=== PATIENT | female | born 1980 | race Caucasian/White ===

== ENCOUNTER → 2019-02-13 | Outpatient (CLI) | payer OTHER, SELFPAY ==
[2015-10-25 22:07] VITALS: BMI 39.8
[2019-02-13 16:47] LABS: Thyroid Stim Hormone (TSH) 1.12 uIU/mL (0.358-3.74)
[2019-02-15 11:09] LABS: Cancer Antigen 125 11.8 U/mL (0.0-38.1)
[2019-02-17 13:32] LABS: HPV Reflexed? NOT INDICATED
== END | disposition home or self-care (01) ==
LOC: WOBLAB 14:12
PROVIDERS: Visit Provider Obstetrics & Gynecology
DX: N92.6 Irregular menstruation, unspecified (principal); R63.5 Abnormal weight gain; Z12.4 Encounter for screening for malignant neoplasm of cervix
CPT/HCPCS: 36415; 84443; 86304; 88175; G0145

== ENCOUNTER → 2019-08-18 | Outpatient (CLI) | payer OTHER, SELFPAY ==
[2019-08-18 20:17] LABS: Chlamydia Trachomatis by PCR Negative (Negative); Neisserai gonorrhoeae by PCR Negative (Negative); Probe Check PASS; Sample Adequacy Control PASS; Specimen Processing Control PASS
== END | disposition home or self-care (01) ==
LOC: LABSPEC 16:47
PROVIDERS: Visit Provider Advanced Practice Midwife
DX: Z11.3 Encounter for screening for infections with a predominantly sexual mode of transmission (principal)
CPT/HCPCS: 87491; 87591

== ENCOUNTER → 2019-08-25 | Outpatient (CLI) | payer OTHER, SELFPAY ==
[2015-10-25 22:07] VITALS: BMI 39.8
[2019-08-25 16:52] LABS: Absolute Lymphocyte Count 2.15 X10^3/uL (0.83-4.51); Absolute Neutrophil Count 9.7 X10^3/uL (2.0-7.7); Basophil# 0.05 X10^3/uL; Basophil% 0.4 % (0-1); Eosinophil# 0.07 X10^3/uL; Eosinophils% 0.6 % (0-5); Hematocrit 35.9 % (37-47); Hemoglobin 11.8 g/dL (12.0-15.0); Lymphocyte # 2.15 X10^3/ul (4.0); Lymphocyte % 16.9 % (19-41); Mean Corp Hgb Conc 32.9 g/dL (32-36); Mean Corpuscular Hgb 28.4 pg (27.0-32.0); Mean Corpuscular Volume 86.3 fL (81-99); Mean Platelet Vol. 10.7 fl (6.2-12.0); Monocyte% 5.5 % (0-10); NRBC Flagged by Analyzer 0 % (0-5); Neutrophil # 9.69 X10^3/uL (2.7-7.7); Neutrophil % 76.4 % (47-70); Platelet Count 310 K/mm3 (150-450); RBC Distribution Width CV 14.2 % (11.6-14.6); RBC Distribution Width SD 44.3 fl (35.1-43.9); Red Blood Count 4.16 M/mm3 (4.2-5.4); White Blood Count 12.7 K/mm3 (4.4-11.0)
[2019-08-25 17:10] LABS: Color, Urine Yellow (Yellow); Glucose, Dipstick Normal (Normal); Ketone-Dipstick 5 mg/dl (Negative); Leukocyte Esterase-Dipstick 25 /ul (Negative); Nitrite-Dipstick Negative (Negative); Occult Blood-Urine Negative /ul (Negative); Protein-Dipstick 15 mg/dl (Negative); Specific Gravity, Urine 1.025 (1.002-1.030); Urine Bilirubin Dipstick Negative (Negative); Urine Clarity Cloudy (Clear); Urine Urobilinogen 1 mg/dl (Normal)
[2019-08-25 17:26] LABS: Thyroid Stim Hormone (TSH) 0.78 uIU/mL (0.358-3.74)
[2019-08-25 17:45] LABS: Amphetamine Urine VISTA NEGATIVE (<1000 ng/mL); Barbiturate Urine VISTA NEGATIVE (< 200 ng/mL); Benzodiazepine Urine VISTA NEGATIVE (< 200 ng/mL); Cocaine Urine VISTA NEGATIVE (< 300 ng/mL); Ecstacy Urine VISTA NEGATIVE (< 500 ng/mL); Methadone Urine VISTA NEGATIVE (< 300 ng/mL); PCP Urine VISTA NEGATIVE (< 25 ng/mL); THC Urine VISTA NEGATIVE (< 50 ng/mL); Vista UDS pH Range 5
[2019-08-29 11:08] LABS: HIV - WCH Preliminary Reactive (Nonreactive); Hepatitis B Surface Antigen Non-Reactive (Nonreactive); Hepatitis C Antibody Non-Reactive (Nonreactive); Rubella IgG 95.3 IU/mL
[2019-08-31 02:20] LABS: Prenatal RPR NONREACTIVE (NONREACTIVE)
== END | disposition home or self-care (01) ==
LOC: WOBLAB 15:33
PROVIDERS: Visit Provider Obstetrics & Gynecology
DX: Z34.82 Encounter for supervision of other normal pregnancy, second trimester (principal)
CPT/HCPCS: 36415; 80307; 81002; 84443; 85025; 86703; 86762; 86803; 87340

== ENCOUNTER → 2019-09-29 16:08 | Outpatient (CLI) | payer OTHER, SELFPAY ==
[2015-10-25 22:07] VITALS: BMI 39.8
[2019-09-29 17:50] LABS: Hemoglobin A1c 5.3 % (4.2-6.3)
== END ==
PROVIDERS: Visit Provider Obstetrics & Gynecology
DX: Z13.1 Encounter for screening for diabetes mellitus (principal)
CPT/HCPCS: 36415; 83036

== ENCOUNTER → 2019-12-27 14:03 | Outpatient (CLI) | payer OTHER, SELFPAY ==
[2015-10-25 22:07] VITALS: BMI 39.8
[2019-12-27 17:01] LABS: Hematocrit 32.6 % (37-47); Hemoglobin 10.5 g/dL (12.0-15.0); Mean Corp Hgb Conc 32.2 g/dL (32-36); Mean Corpuscular Hgb 28.2 pg (27.0-32.0); Mean Corpuscular Volume 87.6 fL (81-99); Platelet Count 386 K/mm3 (150-450); RBC Distribution Width CV 13.6 % (11.6-14.6); RBC Distribution Width SD 43.8 fl (35.1-43.9); Red Blood Count 3.72 M/mm3 (4.2-5.4); White Blood Count 12.2 K/mm3 (4.4-11.0)
[2019-12-27 17:02] LABS: Glucose Challenge Gest 1H 50g 136 mg/dL (70-140)
== END ==
PROVIDERS: Visit Provider Obstetrics & Gynecology
DX: Z34.83 Encounter for supervision of other normal pregnancy, third trimester (principal)
CPT/HCPCS: 36415; 82950; 85027

== ENCOUNTER → 2020-01-11 | Outpatient (CLI) | payer OTHER, SELFPAY ==
[2015-10-25 22:07] VITALS: BMI 39.8
[2020-01-11 17:10] LABS: Mean Corp Hgb Conc 32.4 g/dL (32-36); Mean Corpuscular Volume 86.5 fL (81-99); Mean Platelet Vol. 10.1 fl (6.2-12.0); Platelet Count 372 K/mm3 (150-450); RBC Distribution Width CV 14.3 % (11.6-14.6); RBC Distribution Width SD 44.9 fl (35.1-43.9); Red Blood Count 3.93 M/mm3 (4.2-5.4); White Blood Count 13.5 K/mm3 (4.4-11.0)
[2020-01-11 17:22] LABS: International Normalized Ratio 0.9; Partial Thromboplast Time 26.6 Seconds (24.1-36.2); Prothrombin Time (Protime)PT. 12.3 SECONDS (11.7-14.9)
[2020-01-11 17:27] LABS: ALB/GLOB Ratio 0.6 RATIO (0.9-2.4); AST(SGOT) 12 U/L (15-37); Alanine Aminotransfer ALT/SGPT 19 U/L (13-56); Albumin, Serum 2.8 g/dL (3.2-5.0); Alkaline Phosphatase 135 U/L (45-117); Anion Gap 8 (5-15); BUN 6 mg/dL (7-18); BUN/Creat Ratio 11.3 RATIO (10-20); Bilirubin, Direct < 0.05 mg/dL (0.00-0.30); Calcium,Total 8.9 mg/dL (8.5-10.1); Chloride 105 mmol/L (98-107); Creatinine, Serum 0.53 mg/dL (0.55-1.02); EST Glomerular Filtration Rate 134 mL/min (>60); Est Glom Filt Rate - Afr Amer 162 mL/min (>60); Globulin 4.4 g/dL (2.2-4.2); Glucose 73 mg/dL (74-106); Potassium 3.7 mmol/L (3.5-5.1); Protein, Total 7.2 g/dL (6.4-8.2); Sodium Level 135 mmol/L (136-145); Uric Acid 2.8 mg/dL (2.6-6.0)
== END | disposition home or self-care (01) ==
LOC: WOBLAB 15:55
PROVIDERS: Visit Provider Obstetrics & Gynecology
DX: R03.0 Elevated blood-pressure reading, without diagnosis of hypertension (principal)
CPT/HCPCS: 36415; 80053; 82248; 84550; 85027; 85610; 85730

== ENCOUNTER 2020-01-26 11:45 | Outpatient (CLI) | payer OTHER, SELFPAY ==
[2020-01-26] VITALS (7 sets, daily range): BP systolic 125–172; BP diastolic 67–87; PULSE 92–99; TEMP 36.6; O2SAT 96; BMI 44.6
[2020-01-26] MEDS: 0.9% Saline Lock 10 ML Syringe IV (12:00)
[2020-01-26] MEDS: Betamethasone/Betamethasone 30 MG/5 ML Vial 12 MG IM (12:37)
[2020-01-26 13:09] LABS: Hematocrit 34.9 % (37-47); Hemoglobin 11.3 g/dL (12.0-15.0); Mean Corp Hgb Conc 32.4 g/dL (32-36); Mean Corpuscular Hgb 28.3 pg (27.0-32.0); Mean Corpuscular Volume 87.3 fL (81-99); Mean Platelet Vol. 9.1 fl (6.2-12.0); Platelet Count 344 K/mm3 (150-450); RBC Distribution Width CV 14.3 % (11.6-14.6); RBC Distribution Width SD 45.5 fl (35.1-43.9); White Blood Count 12.7 K/mm3 (4.4-11.0)
[2020-01-26 13:18] LABS: Protein, Urine (Random) 19.7 mg/dL (<11.9); Protein:Creat Ratio 117 mg/g CRE (0-200)
[2020-01-26 13:24] LABS: ALB/GLOB Ratio 0.7 RATIO (0.9-2.4); AST(SGOT) 11 U/L (15-37); Alanine Aminotransfer ALT/SGPT 20 U/L (13-56); Albumin, Serum 2.8 g/dL (3.2-5.0); Alkaline Phosphatase 136 U/L (45-117); Anion Gap 7 (5-15); BUN 4 mg/dL (7-18); BUN/Creat Ratio 7.3 RATIO (10-20); Calcium,Total 9.1 mg/dL (8.5-10.1); Chloride 107 mmol/L (98-107); Creatinine, Serum 0.55 mg/dL (0.55-1.02); EST Glomerular Filtration Rate 130 mL/min (>60); Est Glom Filt Rate - Afr Amer 158 mL/min (>60); Estimated Creatinine Clearance 126.01 ml/min; Glucose 81 mg/dL (74-106); Potassium 4.2 mmol/L (3.5-5.1); Protein, Total 6.8 g/dL (6.4-8.2); Sodium Level 139 mmol/L (136-145); Uric Acid 2.9 mg/dL (2.6-6.0)
--- NOTE | 2020-01-26 15:04 | OB.TRI.NOTE ---
- Problem List (1) 33 weeks gestation of Status: Acute (2) Gestational hypertension Status: Acute Qualifiers: Trimester: third trimester Qualified Code(s): O13.3 - Gestational [-induced] hypertension without significant proteinuria, third trimester History of Present Illness Date of Service: 01/26/20 Was patient seen by the physician?: Yes Reason For Visit: R/O preeclampsia Final LILA: 03/10/20 Final LILA Source: LMP Gestational age: 33 Weeks and 5 Days History of Present Illness: 39yo @ 33 5/7wga sent from office with elevated BPs. Home BPs to 160/110 this am and office BP today 140/92, NST there reactive. Denies headache, vision changes, shortness of breath or abdominal pain. + FM, no leaking of fluid, vaginal bleeding or contractions. hx preeclampsia in prior . Allergies No Known Allergies Allergy (Verified 01/26/20 13:04) Laboratory Studies: Laboratory Tests 01/26/20 01/26/20 01/26/20 Range/Units 12:59 12:59 12:59 WBC 12.7 H (4.4-11.0) K/mm3 RBC 4.00 L (4.2-5.4) M/mm3 Hgb 11.3 L (12.0-15.0) g/dL Hct 34.9 L (37-47) % MCV 87.3 (81-99) fL MCH 28.3 (27.0-32.0) pg MCHC 32.4 (32-36) g/dL RDW Std Deviation 45.5 H (35.1-43.9) fl RDW Coeff of Mily 14.3 (11.6-14.6) % Plt Count 344 (150-450) K/mm3 MPV 9.1 (6.2-12.0) fl Sodium 139 (136-145) mmol/L Potassium 4.2 (3.5-5.1) mmol/L Chloride 107 (98-107) mmol/L Carbon Dioxide 25.0 (21.0-32.0) mmol/L Anion Gap 7 (5-15) BUN 4 L (7-18) mg/dL Creatinine 0.55 (0.55-1.02) mg/dL Estim Creat Clear Calc 126.01 ml/min Est GFR (MDRD) Af Amer 158 (>60) mL/min Est GFR (MDRD) Non-Af 130 (>60) mL/min BUN/Creatinine Ratio 7.3 L (10-20) RATIO Glucose 81 (74-106) mg/dL Uric Acid 2.9 (2.6-6.0) mg/dL Calcium 9.1 (8.5-10.1) mg/dL Total Bilirubin 0.20 (0.20-1.00) mg/dL AST 11 L (15-37) U/L ALT 20 (13-56) U/L Alkaline Phosphatase 136 H (45-117) U/L Total Protein 6.8 (6.4-8.2) g/dL Albumin 2.8 L (3.2-5.0) g/dL Globulin 4.0 (2.2-4.2) g/dL Albumin/Globulin Ratio 0.7 L (0.9-2.4) RATIO U Random Total Protein 19.7 H (<11.9) mg/dL Urine Creatinine 168.00 (NO RANGE EST.) mg/dL Protein/Creatinin Ratio 117 (0-200) mg/g CRE Physical Exam Vitals: Vital Signs Temp Pulse BP Pulse Ox 97.9 F 92 125/67 H 96 01/26/20 11:59 01/26/20 13:44 01/26/20 13:44 01/26/20 11:59 General: Alert, Oriented x3, Cooperative, No apparent distress HEENT: Atraumatic, Normocephalic Lungs: Normal air movement Abdomen: Soft, Non Tender, Non-Distended, Gravid Extremities:: No edema Neurological: Neuro grossly intact, - - No clonus, trace b/l LE DTRs NST - FHR Rate Baby A Baseline: 135 Variability:: Moderate Accelerations:: 15 x 15 Decelerations:: None NST Reactive:: Yes FHR Category:: Category I Uterine Activity:: 0-11/03 Impression/Plan 39yo @ 33 5/7wga with gestational HTN -Labs reviewed and wnl -24h urine protein ordered, pt to complete outpatient -Betamethasone 12mg IM x 1 given -Continue home BP monitoring, parameters and si/sx requiring further attention reviewed including FM precautions. -d/c home -Return in 24h for repeat betamethasone -f/u on Wednesday in office for BPP, JONO, BP check. Plan for twice weekly encounters. Office Visits / Consults: [id number] OV L2 New
[2020-01-27 14:32] LABS: 24HR. UA Prot. Total Volume 900 mL
== END 2020-01-26 14:25 | disposition home or self-care (01) ==
LOC: LAB 11:47 → WPOUT 11:47 → OBT 11:49
PROVIDERS: Referring Provider Obstetrics & Gynecology; Visit Provider Obstetrics & Gynecology
DX: O13.3 Gestational [pregnancy-induced] hypertension without significant proteinuria, third trimester (principal); Z3A.33 33 weeks gestation of pregnancy
CPT/HCPCS: 36415; 59025; 80053; 81050; 82570; 84156; 84550; 85027; 96372; 99218; G0378; J0702

== ENCOUNTER 2020-01-27 13:00 | Outpatient (CLI) | payer OTHER, SELFPAY ==
[2020-01-26 11:45] VITALS: BMI 44.6
[2020-01-27 13:21] VITALS: BMI 46.3
[2020-01-27 13:36] VITALS: BP 129/79; PULSE 102
[2020-01-27] MEDS: Betamethasone/Betamethasone 30 MG/5 ML Vial 12 MG IM (13:38)
--- NOTE | 2020-01-28 10:29 | PCM.PN.BLA ---
Progress Note Entry for 01/27/20: Allison presents at 33 6/7wga for repeat betamethasone injection. She was seen yesterday with elevated BP, started on Nifedipine PO. She reports BP improved since starting Nifedipine and denies preeclamptic symptoms. BP check here wnl. d/c home. Follow up 24h urine results.
== END 2020-01-27 13:40 | disposition home or self-care (01) ==
LOC: WPOUT 13:13 → WP 13:17
PROVIDERS: Visit Provider Obstetrics & Gynecology
DX: O16.3 Unspecified maternal hypertension, third trimester (principal); Z3A.33 33 weeks gestation of pregnancy
CPT/HCPCS: 96372; 99218; G0378; J0702

== ENCOUNTER → 2020-01-27 | Outpatient (CLI) | payer OTHER, SELFPAY ==
[2020-01-27 13:21] VITALS: BMI 46.3
== END | disposition home or self-care (01) ==
PROVIDERS: Visit Provider Obstetrics & Gynecology
DX: R69 Illness, unspecified (principal)

== ENCOUNTER 2020-01-30 12:27 | Outpatient (CLI) | payer OTHER, SELFPAY ==
[2020-01-30] VITALS (17 sets, daily range): BP systolic 134–153; BP diastolic 72–90; PULSE 95–116; BMI 49.1
[2020-01-30 13:17] LABS: Hematocrit 34.7 % (37-47); Hemoglobin 11.4 g/dL (12.0-15.0); Mean Corp Hgb Conc 32.9 g/dL (32-36); Mean Corpuscular Hgb 28.6 pg (27.0-32.0); Mean Platelet Vol. 9.4 fl (6.2-12.0); Platelet Count 352 K/mm3 (150-450); RBC Distribution Width CV 14.3 % (11.6-14.6); RBC Distribution Width SD 44.8 fl (35.1-43.9); Red Blood Count 3.99 M/mm3 (4.2-5.4); White Blood Count 16.7 K/mm3 (4.4-11.0)
[2020-01-30 13:29] LABS: Creatinine, Urine (random) < 13.00 mg/dL (NO RANGE EST.); Protein, Urine (Random) < 6.0 mg/dL (<11.9)
[2020-01-30 13:52] LABS: ALB/GLOB Ratio 0.8 RATIO (0.9-2.4); AST(SGOT) 16 U/L (15-37); Alanine Aminotransfer ALT/SGPT 17 U/L (13-56); Albumin, Serum 2.9 g/dL (3.2-5.0); Alkaline Phosphatase 115 U/L (45-117); Anion Gap 7 (5-15); BUN 8 mg/dL (7-18); BUN/Creat Ratio 13.2 RATIO (10-20); Chloride 109 mmol/L (98-107); Creatinine, Serum 0.61 mg/dL (0.55-1.02); EST Glomerular Filtration Rate 115 mL/min (>60); Est Glom Filt Rate - Afr Amer 139 mL/min (>60); Estimated Creatinine Clearance 109.21 ml/min; Globulin 3.8 g/dL (2.2-4.2); Glucose 81 mg/dL (74-106); Potassium 3.7 mmol/L (3.5-5.1); Protein, Total 6.7 g/dL (6.4-8.2); Sodium Level 139 mmol/L (136-145); Uric Acid 2.9 mg/dL (2.6-6.0)
--- NOTE | 2020-02-12 07:34 | OB.TRI.NOTE ---
- Problem List (1) Gestational hypertension Status: Acute Qualifiers: Trimester: third trimester History of Present Illness Date of Service: 01/30/20 Was patient seen by the physician?: Yes Reason For Visit: r/o preeclampsia Final LILA: 03/10/20 Final LILA Source: US <20 weeks Gestational age: 34 Weeks and 2 Days History of Present Illness: 39yo @ 34 2/7wga with hx gestational hypertension presenting for elevated blood pressure. hx gestational hypertension and is on Nifedipine. Denies headache, vision changes, abdominal pain. She reports shortness of breath with increased activity. She has been working at home for the last few weeks and less active. Denies gasping for air or shortness of breath at rest. Reports a singular episode of chest pain, lightheadedness approximately 2 weeks ago. No prior similar episodes. Denies palpitations or heart racing, was without precipitation and occurred during rest while her BP was elevated. Reports anxiety related to her blood pressures. She felt as if harm was coming, but episode resolved quickly. Allergies No Known Allergies Allergy (Verified 02/03/20 10:17) Laboratory Studies: Laboratory Tests 01/30/20 01/30/20 01/30/20 Range/Units 13:05 13:05 13:05 WBC 16.7 H (4.4-11.0) K/mm3 RBC 3.99 L (4.2-5.4) M/mm3 Hgb 11.4 L (12.0-15.0) g/dL Hct 34.7 L (37-47) % MCV 87.0 (81-99) fL MCH 28.6 (27.0-32.0) pg MCHC 32.9 (32-36) g/dL RDW Std Deviation 44.8 H (35.1-43.9) fl RDW Coeff of Mily 14.3 (11.6-14.6) % Plt Count 352 (150-450) K/mm3 MPV 9.4 (6.2-12.0) fl Sodium 139 (136-145) mmol/L Potassium 3.7 (3.5-5.1) mmol/L Chloride 109 H (98-107) mmol/L Carbon Dioxide 23.0 (21.0-32.0) mmol/L Anion Gap 7 (5-15) BUN 8 (7-18) mg/dL Creatinine 0.61 (0.55-1.02) mg/dL Estim Creat Clear Calc 109.21 ml/min Est GFR (MDRD) Af Amer 139 (>60) mL/min Est GFR (MDRD) Non-Af 115 (>60) mL/min BUN/Creatinine Ratio 13.2 (10-20) RATIO Glucose 81 (74-106) mg/dL Uric Acid 2.9 (2.6-6.0) mg/dL Calcium 9.0 (8.5-10.1) mg/dL Total Bilirubin 0.30 (0.20-1.00) mg/dL AST 16 (15-37) U/L ALT 17 (13-56) U/L Alkaline Phosphatase 115 (45-117) U/L Total Protein 6.7 (6.4-8.2) g/dL Albumin 2.9 L (3.2-5.0) g/dL Globulin 3.8 (2.2-4.2) g/dL Albumin/Globulin Ratio 0.8 L (0.9-2.4) RATIO U Random Total Protein < 6.0 (<11.9) mg/dL Urine Creatinine < 13.00 (NO RANGE EST.) mg/dL Protein/Creatinin Ratio TNP Review of Systems Constitutional: Denies: Fever, Fatigue HEENT: Denies: Head Aches, Visual Changes Respiratory: Reports: Shortness of Breath. Denies: Cough, Shortness of breath at rest Gastrointestinal: Denies: Abdominal Pain, Constipation, Diarrhea, Nausea, Vomiting Gynecological: Reports: - - No contractions, leaking of fluid or vaginal bleeding. + Physical Exam Vitals: Vital Signs Pulse BP 106 H 134/78 H 01/30/20 16:57 01/30/20 16:57 General: Alert, Oriented x3, Cooperative, No apparent distress HEENT: Atraumatic, Normocephalic Cardiovascular: Regular rate, Regular Rhythm Lungs: Clear to auscultation, Normal air movement Abdomen: Soft, Non Tender, Non-Distended, Gravid Neurological: Deep Tendon Reflexes 2+/4 and Symmetrical, Neuro grossly intact, - - no clonus NST - FHR Rate Baby A Baseline: 125 Variability:: Moderate Accelerations:: 15 x 15 Decelerations:: None NST Reactive:: Yes FHR Category:: Category I Uterine Activity:: 0/10 Impression/Plan 39yo @ 34 1/7wga with hx gestational HTN, Cat I FHR -Pt to return to office in 2-3 days for BP check and bring her home cuff. BPs in house not c/w with home BP read. -Preeclamptic labs wnl -Suspect anxiety attack prior. Monitor closely. -dc home -Reviewed si/sx preeclampsia requiring further attention Office Visits / Consults: [phone] OV L3 Est
== END 2020-01-30 17:00 | disposition home or self-care (01) ==
LOC: WPOUT 12:33 → WP 12:34
PROVIDERS: Referring Provider Obstetrics & Gynecology; Visit Provider Obstetrics & Gynecology
DX: O13.3 Gestational [pregnancy-induced] hypertension without significant proteinuria, third trimester (principal); Z3A.34 34 weeks gestation of pregnancy
CPT/HCPCS: 36415; 59025; 59050; 80053; 82570; 84156; 84550; 85027; 99218; G0378

== ENCOUNTER → 2020-01-31 | Outpatient (CLI) | payer OTHER, SELFPAY ==
[2020-01-30 12:36] VITALS: BMI 49.1
[2020-01-31 15:03] LABS: BNP,B-Type NATRIURETIC PEPTIDE 5.8 pg/mL (0-100)
== END | disposition home or self-care (01) ==
LOC: LAB 13:27
PROVIDERS: Referring Provider Obstetrics & Gynecology; Visit Provider Obstetrics & Gynecology
DX: O13.3 Gestational [pregnancy-induced] hypertension without significant proteinuria, third trimester (principal); Z3A.00 Weeks of gestation of pregnancy not specified
CPT/HCPCS: 36415; 83880

== ENCOUNTER 2020-02-03 09:50 | Outpatient (CLI) | payer OTHER, SELFPAY ==
[2020-01-30 12:36] VITALS: BMI 49.1
[2020-02-03 10:08] VITALS: BP 130/74; PULSE 110; TEMP 36.3; O2SAT 98
[2020-02-03 10:18] VITALS: BMI 44.4
[2020-02-03 10:30] VITALS: PULSE 103; O2SAT 98
[2020-02-03 10:36] VITALS: BP 136/76
--- NOTE | 2020-02-03 11:27 | OB.TRI.NOTE ---
History of Present Illness Date of Service: 02/03/20 Was patient seen by the physician?: No Reason For Visit: Mild PIH Date of Service: 02/03/20 Final LILA: 03/10/20 Final LILA Source: US <20 weeks Gestational age: 34 Weeks and 6 Days History of Present Illness: 34+ weeks gestation with intermittently mild elevated blood pressures in the office. Presents for routine nonstress test. Denies any PIH symptoms except occasional mild dizziness. Allergies No Known Allergies Allergy (Verified 02/03/20 10:17) Physical Exam Vitals: Vital Signs Temp Pulse BP Pulse Ox 97.4 F L 103 H 136/76 H 98 02/03/20 10:08 02/03/20 10:30 02/03/20 10:36 02/03/20 10:30 NST - FHR Rate Baby B NST Reactive:: Yes FHR Category:: Category I Impression/Plan 34+ week intrauterine with mild gestational hypertension. Reactive nonstress test. Blood pressures okay today. Will release to home with routine follow-up later this week in the office.
== END 2020-02-03 10:45 | disposition home or self-care (01) ==
LOC: WPOUT 09:55 → OBT 09:56
PROVIDERS: Referring Provider Obstetrics & Gynecology; Visit Provider Obstetrics & Gynecology
DX: O13.3 Gestational [pregnancy-induced] hypertension without significant proteinuria, third trimester (principal); Z3A.34 34 weeks gestation of pregnancy
CPT/HCPCS: 59025; 59050; 99218; G0378

== ENCOUNTER → 2020-02-13 | Outpatient (CLI) | payer OTHER, SELFPAY ==
[2020-02-03 10:18] VITALS: BMI 44.4
== END | disposition home or self-care (01) ==
PROVIDERS: Referring Provider Obstetrics & Gynecology; Visit Provider Obstetrics & Gynecology
DX: Z36.85 Encounter for antenatal screening for Streptococcus B (principal)
CPT/HCPCS: 87081

== ENCOUNTER → 2020-02-15 11:05 | Outpatient (CLI) | payer OTHER, SELFPAY ==
[2020-02-03 10:18] VITALS: BMI 44.4
== END ==
PROVIDERS: Referring Provider Obstetrics & Gynecology; Visit Provider Obstetrics & Gynecology
DX: Z34.83 Encounter for supervision of other normal pregnancy, third trimester (principal); R00.2 Palpitations
CPT/HCPCS: 93225; 93226

== ENCOUNTER 2020-02-20 07:10 | Inpatient (IN) | payer OTHER, SELFPAY ==
[2020-02-20] VITALS (59 sets, daily range): BP systolic 109–154; BP diastolic 55–92; PULSE 8–105; RESP 16; TEMP 36.1–37.1; O2SAT 83–99; BMI 48.7
[2020-02-20] MEDS: Lactated Ringers 1,000 ML 50 ML IV (07:40)
--- NOTE | 2020-02-20 07:56 | HP.PCM_ITS ---
- Problem List (1) 37 weeks gestation of Status: Acute (2) Encounter for induction of labor Status: Acute (3) Anemia affecting Status: Acute (4) Gestational hypertension Status: Acute Qualifiers: History Date of Admission: 02/20/20 Final LILA: 02/29/20 Final LILA Source: US <20 weeks Gestational age: 38 Weeks and 5 Days History of this : This is a 39 year-old, G [3], P [2], at 37.2 weeks gestational age. IOL for gestation HTN. Allergies No Known Allergies Allergy (Verified 02/03/20 10:17) Home Medications: Home Medications Aspirin [Aspir 81] 81 mg PO DAILY 01/26/[address] 10-10 mg Tablet 2 tab PO DAILY 01/26/20 Ferrous Sulfate [Iron] 325 mg PO DAILY 01/26/20 Nifedipine [Nifedipine ER] 30 mg PO DAILY PRN PRN 02/20/20 Smoking Status: Never smoker Alcohol: None Number of Fetus(es): 1 NST - FHR Rate Baby A Baseline: 140 Variability:: Moderate Accelerations:: 15 x 15 Decelerations:: None NST Reactive:: Yes FHR Category:: Category I Uterine Activity:: quiet History Past Pregnancies: PAST #1: Date of :.................. 09/21/06 Gestation Weeks:................ 41 Length of labor(hours):......... 20 Sex:............................ F Weight-lbs:............... 6 Weight-oz:................ 11 Type of Delivery:............... Vag Type of Anesthesia:............. Epidural Place of Delivery:.............. [place] Treatment of Labor?:.... No Comment: PAST #2: Date of :.................. 10/22/15 Gestation Weeks:................ 40 Length of labor(hours):......... 12 Sex:............................ F Weight-lbs:............... 7 Weight-oz:................ 0 Type of Delivery:............... Vag Type of Anesthesia:............. Epidural Place of Delivery:.............. [place] Treatment of Labor?:.... No Comment: IOL Expected Delivery Method: Spontaneous Vaginal Number of Visits: 12 Review of Systems Constitutional: Denies: Chills, Fever, Weight Change HEENT: Denies: Head Aches, Sinus Congestion, Sinus Drainage Cardiovascular: Denies: Chest Pain, Palpitations Respiratory: Denies: Cough, Shortness of breath at rest, Sputum production Gastrointestinal: Denies: Abdominal Pain, Nausea, Vomiting Genitourinary: Denies: Dysuria Musculoskeletal: Denies: Joint Pain, Joint Tenderness Skin: Denies: Rash, Wounds Neurological: Denies: Numbness, Tingling, Focal weakness Psychiatric: Denies: Anxiety, Depression, Homicidal Ideations, Suicidal Ideations Hematologic/ Lymphatic: Denies: Easy Bruising, Easy Bleeding Physical Exam Vitals: Vital Signs Temp Pulse BP 98.0 F 104 H 129/78 H 02/20/20 07:45 02/20/20 07:44 02/20/20 07:44 General: Alert, Oriented x3, No apparent distress HEENT: Atraumatic, Normocephalic. Negative for: Thyromegaly, Lymphadenopathy Cardiovascular: Regular rate, Regular Rhythm Lungs: Clear to auscultation Abdomen: Bowel Sounds Present, Gravid Neurological: Deep Tendon Reflexes 2+/4 and Symmetrical, Neuro grossly intact [employer]: Normal external genitalia. Negative for: Vulvar lesions Estimated gestational size: Appropriate for gestational size Presentation: Cephalic Cervix Dilation (cm): 2 - per office Station: -3 Effacement (%): 50 Assessment/Plan All Active Problems 33 weeks gestation of (Acute) Gestational hypertension (Acute) 37 weeks gestation of (Acute) Encounter for induction of labor (Acute) Anemia affecting (Acute) A/P: This is a 39 year-old, G [3], P [2], at 37.2 weeks gestational age. NST Category I reactive Here for IOL for gestational HTN oral controlled on Nifedipine ER 30mg SVE in the office was /-3, will be reassessed by Dr. Miller Plans epidural for pain management Expect
[2020-02-20 08:06] LABS: Absolute Lymphocyte Count 2.15 X10^3/uL (0.83-4.51); Absolute Neutrophil Count 8.7 X10^3/uL (2.0-7.7); Basophil# 0.03 X10^3/uL; Basophil% 0.3 % (0-1); Eosinophil# 0.09 X10^3/uL; Eosinophils% 0.8 % (0-5); Hematocrit 34.2 % (37-47); Hemoglobin 11.3 g/dL (12.0-15.0); Lymphocyte # 2.15 X10^3/ul (4.0); Lymphocyte % 18.8 % (19-41); Mean Corpuscular Hgb 28.6 pg (27.0-32.0); Mean Corpuscular Volume 86.6 fL (81-99); Mean Platelet Vol. 9.5 fl (6.2-12.0); Monocyte# 0.44 X10^3/uL; Monocyte% 3.8 % (0-10); NRBC Flagged by Analyzer 0 % (0-5); Neutrophil # 8.67 X10^3/uL (2.7-7.7); Neutrophil % 75.6 % (47-70); Platelet Count 335 K/mm3 (150-450); RBC Distribution Width CV 14.4 % (11.6-14.6); Red Blood Count 3.95 M/mm3 (4.2-5.4); White Blood Count 11.5 K/mm3 (4.4-11.0)
[2020-02-20] MEDS: miSOPROStol 25 MCG TABLET VAGINAL (08:54)
[2020-02-20] MEDS: Oxytocin 30 units/NS 500 ml 30 UNITS/500 ML IV.SOLN IV (13:36)
[2020-02-20] MEDS: Lactated Ringers 500 ML 999 ML IV (13:38)
[2020-02-20] MEDS: fentaNYL-bupivacaine (epidural) 100 ML BAG EPIDURAL (15:36)
--- NOTE | 2020-02-20 16:19 | PCM.PN.BLA ---
Progress Note S: Still has feeling, but no pain. Is comfortable O: VSS, last BP 140/73 Pitocin at 2.0 SVE 3.5/75/-2 UC Q1.5-3 minutes FHR baseline 130, +accels, - decels, moderate variability A: Category I NST Unchanged cervix Pain well controlled with epidural P: AROM, clear fluid Pitocin to 4.0 Continue IOL Expect STROKE Vital Signs/Narrative: Vital Signs Temp Pulse BP Pulse Ox 02/20/20 16:02 87 140/73 H 97 02/20/20 15:32 97.2 F L 88 137/87 H 02/20/20 15:27 86 135/86 H 02/20/20 15:21 89 125/77 H 02/20/20 15:17 77 96 02/20/20 15:16 93 127/79 H 93 02/20/20 15:12 90 97 02/20/20 15:11 89 139/80 H 02/20/20 15:08 88 129/80 H 02/20/20 15:07 88 97 02/20/20 15:05 84 125/79 H 02/20/20 15:01 90 93 02/20/20 14:58 84 114/55 L 02/20/20 14:56 88 94 02/20/20 14:55 87 94 02/20/20 14:52 87 109/68 02/20/20 14:51 85 96 02/20/20 14:48 100 147/91 H 92 02/20/20 14:46 94 89 02/20/20 14:43 95 94 02/20/20 14:41 93 141/87 H 97 02/20/20 14:38 136/88 H 02/20/20 14:37 89 94 02/20/20 14:36 88 95 02/20/20 14:32 95 94 02/20/20 14:31 94 98 02/20/20 14:28 90 141/88 H 02/20/20 13:41 86 97 02/20/20 13:16 20 L 85 02/20/20 13:15 98.8 F 02/20/20 13:14 83 133/75 H
[2020-02-20] MEDS: Lactated Ringers 1,000 ML 200 ML IV (17:40)
[2020-02-20] MEDS: Oxytocin 30 units/NS 500 ml 30 UNITS/500 ML IV.SOLN 334 UNITS IV (18:00)
--- NOTE | 2020-02-20 18:37 | PCM.OPRPT ---
Problem List (1) 37 weeks gestation of Status: Acute (2) Encounter for induction of labor Status: Acute (3) Anemia affecting Status: Acute (4) Gestational hypertension Status: Acute Qualifiers: Vaginal Delivery Maternal Presentation: Medically Indicated Induction Method of Induction: Pitocin, Amniotomy, Cytotec Medical Reason for Induction: Gestational Hypertension Amniotic Membrane Rupture Type: Artificial Amniotic Fluid Description: Clear Final LILA: 02/29/20 Final LILA Source: US <20 weeks Gestational age: 38 Weeks and 5 Days Date of Procedure: 02/20/20 Pre-Operative Diagnosis: Gestational hypertension, 37 weeks gestation, IOL Post-Operative Diagnosis: S/P NVD Surgery/ Procedure Performed: Spontaneous Vaginal Delivery Anesthesiologist: Lisa Matthews Type of Anesthesia: Epidural Description of Procedure: Patient had spontaneous urge to push and complete +1. Patient pushed well to deliver head in OA to AMY immediately followed by body. The female infant was placed on the maternal abdomen and further attended by nursery personnel with bulb suction and stimulation. The cord was doubly clamped then cut by FOB with CNM supervision at approximately 3 minute of life. IV Pitocin started per protocol. With gentle cord traction spontaneous delivery of placenta. Fundal massage given, firm and midline. On inspection placenta appeared to be fully intact with a three vessel cord. First degree perineal/vaginal extension laceration. Repaired with a 3.0 rapide with epidural intact. EBL 200. Sponge and needle count correct x2. Apgars 8/9. Presentation: Vertex, AMY Placental Delivery Description: Spontaneous Placenta Disposition: [facility] Cord Vessel Description: 3 Vessels Cord Entanglement: None Drain: Bautista to straight drain Estimated Blood Loss: 200 Infant A gender: Female (1 minute): 8 (5 minute): 9 Episiotomy Description: None Laceration: Perineal Extension/lac, 1st degree Medications given after delivery: IV Pitocin
--- NOTE | 2020-02-20 18:54 | DCINST_ITS ---
Discharge Diet: No Restrictions Discharge Activity: Return to Normal Activity, May not drive while taking narcotic pain medications., May Shower May resume sexual activity in: 4-6 weeks Additional Activity Instructions:: Nothing in the vagina for 4-6 weeks. You may return to work/school in 6 weeks. Call your doctor if your incision/area has: Continuous Slow Oozing, Sudden Increased Bleeding, Increased Pain/ Swelling, Increased Redness, Foul Smelling Discharge Additional Instructions: If you experience any of the following, contact your healthcare provider. * Bleeding that soaks a pad every hour for 2 hours * Fever 100.4 or higher * Unrelieved incision or abdominal pain * Swelling, redness, discharge or bleeding from your incision or episiotomy site * Your incision begins to separate * Problems urinating (including inability to urinate or burning while urinating). * Visual changes * Severe headache * Flu-like symptoms * Pain or redness in one of both of your breasts * Pain, warmth, tenderness or swelling in your legs, especially the calf area * Frequent nausea and vomiting * Symptoms of depression or anxiety If you experience any of the following, call 911 or go to the nearest Emergency Room. * Chest pain * Problems breathing * Seizure activity * Partial or complete paralysis of a body part, slurred speech, weakness or drooping of the face, or a sudden inability to walk or hold your balance Allergies/Adverse Reactions: Allergies No Known Allergies Allergy (Verified 02/03/20 10:17) Medications to take at Discharge Aspirin [Aspir 81] 81 mg PO DAILY 01/26/[address] 10-10 mg Tablet 2 tab PO DAILY 01/26/20 Ferrous Sulfate [Iron] 325 mg PO DAILY 01/26/20 Nifedipine [Nifedipine ER] 30 mg PO DAILY PRN PRN 02/20/20 Please Follow Up With: Sharmaine Kuo CNM When: If you do not already have a scheduled appointment call to make an appointment with your CNM in 2 weeks for a BP check and 6 weeks for a routine visit. If any signs of depression, call immediately. Primary Care Physician: Care Physician,No Primary [Primary Care Provider] - Test Results: Test results from this visit will be discussed in further detail at your follow- up appointment, if applicable.
[2020-02-20] MEDS: 0.9% Saline Lock 10 ML Syringe IV (20:41)
--- NOTE | 2020-02-20 21:33 | NURSING ---
Informed Luis A Kuo CNM via telephone of patient's most recent blood pressures. Telephone order to start Nifedipine 30 mg by mouth daily. Will continue to monitor blood pressures. Patient asymptomatic at this time.
[2020-02-20] MEDS: NIFEdipine 30 MG Tablet PO (22:04)
[2020-02-21] VITALS (13 sets, daily range): BP systolic 124–156; BP diastolic 66–81; PULSE 77–107; RESP 16–20; TEMP 36.1–36.7; O2SAT 97–99
[2020-02-21] MEDS: Ibuprofen 600 MG Tablet PO (03:07)
--- NOTE | 2020-02-21 12:51 | PCM.PN.OB ---
Patient Problems: Active and Suspected Problems 37 weeks gestation of (Acute) Encounter for induction of labor (Acute) Anemia affecting (Acute) Subjective: States doing okay. Did some have cramping, but feels better with Motrin. Bottlefeeding. Denies bleeding or concerns. Wants to discharge today. Objective: VSS. BP slightly elevated. Fundus, firm, midline u/1. - Physical Exam Vitals/I&O's: Vital Signs Temp Pulse Resp BP Pulse Ox 97.6 F L 90 18 124/69 H 97 02/21/20 09:07 02/21/20 09:07 02/21/20 09:07 02/21/20 09:07 02/21/20 09:07 Oxygen Delivery Method Room Air Weight: 128.82 kg Body Mass Index (BMI) 48.7 Intake and Output for Last 24 Hours 02/19/20 02/20/20 02/21/20 23:59 23:59 23:59 Intake Total 3064.53 / 3064.53 240 / 240 Output Total 1300 / 1300 200 / 200 Balance 1764.53 / 1764.53 40 / 40 General: Alert, Oriented x3, Cooperative HEENT: Atraumatic, PERRLA, EOMI, Normocephalic Neck: Supple, No JVD, Negative Carotid Bruits Lungs: Clear to auscultation, Normal air movement Cardiovascular: Regular rate, No murmurs Abdomen: Bowel Sounds Present, Soft, Non Tender Extremities: No edema, Capillary Refill Less than 3 Seconds Skin: No rashes, No breakdown Musculoskeletal: No Tenderness to Palpation of Joints or Extremities Neurological: Cranial nerves II-XII grossly intact Psych/Mental Status: Normal Affect, Appropriate Current Medications Acetaminophen (Tylenol) 1,000 mg PO Q8H PRN PRN PRN Reason: Pain Score 1-3/10 Bisacodyl (Dulcolax) 10 mg RECTAL UD PRN PRN Reason: If no BM Hydrocortisone (Hytone) 1 applic TOPICAL TID PRN PRN; Protocol PRN Reason: Discomfort Ibuprofen (Motrin) 600 mg PO Q6H PRN PRN PRN Reason: Pain Score 1-3/10 Last Admin: 02/21/20 03:07 Dose: 600 mg Documented by: Methylergonovine Maleate (Methergine) 0.2 mg IM X1 PRN PRN Reason: Excess bleeding/uterine atony Nifedipine (Procardia Xl) 30 mg PO DAILY MANJU Last Admin: 02/20/20 22:04 Dose: 30 mg Documented by: Ondansetron HCl (Zofran) 4 mg IV Q4H PRN PRN PRN Reason: Nausea Oxycodone HCl (Oxyir) 5 - 10 mg PO Q4H PRN PRN PRN Reason: Pain Score 4-10/10 Senna/Docusate Sodium (Senokot-S, Shannon-Colace) 1 - 2 tablet PO DAILY PRN PRN PRN Reason: Constipation Simethicone (Mylicon) 80 mg PO PCHS PRN PRN Reason: Indigestion/Stomach pain Sodium Chloride () 5 - 15 ml IV UD PRN PRN Reason: SALINE FLUSH Last Admin: 02/20/20 20:41 Dose: 10 ml Documented by: Throat Lozenges (Dermoplast (Sp)) 1 applic TOPICAL 4X/DAY PRN PRN; Protocol PRN Reason: Pain/Inflammation Last Admin: 02/20/20 22:04 Dose: 1 applic Documented by: Medical Necessity - Tobacco Use Smoking Status: Never smoker Assessment/Plan All Active Problems 33 weeks gestation of (Acute) Gestational hypertension (Acute) 37 weeks gestation of (Acute) Encounter for induction of labor (Acute) Anemia affecting (Acute) post vaginal delivery day #1 Bottle feeding daughter Normal course and involution Gestational htn stable with Nifedipine XR 30mg, will continue at home Can discharge today after 24 hours To take BP at home BID and continue Nifedipine Follow up in office in 2 weeks for BP check and normal 6 week PP visit
== END 2020-02-21 21:15 | disposition home or self-care (01) | DRG 807 ==
PROVIDERS: Obstetrics & Gynecology; Admitting Provider Obstetrics & Gynecology; Referring Provider Obstetrics & Gynecology; Visit Provider Obstetrics & Gynecology
DX: O13.4 Gestational [pregnancy-induced] hypertension without significant proteinuria, complicating childbirth (principal); Z37.0 Single live birth; O99.02 Anemia complicating childbirth; D64.9 Anemia, unspecified; O70.0 First degree perineal laceration during delivery; Z3A.37 37 weeks gestation of pregnancy
CPT/HCPCS: 59025; 59050; 85025; 86850; 86900; 86901; 99218; J7120; A4216; G0378